=== PATIENT | male | born 2000 | race Two or more races ===

== ENCOUNTER 2019-06-02 17:59 | Emergency (ER) | payer BC, OTHER ==
[~2019-06-02] VITALS: Ht 177.8 cm; Wt 70.3 kg
[2019-06-02] MEDS ORDERED: IBUPROFEN 800 MG TAB PO ONE (20:15)
[2019-06-02 20:31] VITALS: BP 145/90
== END 2019-06-02 21:22 | disposition home or self-care (01) ==
LOC: ER 18:00
DX: S43.102A Unspecified dislocation of left acromioclavicular joint, initial encounter (principal); W19.XXXA Unspecified fall, initial encounter; Y93.89 Activity, other specified; Y99.8 Other external cause status; Y92.89 Other specified places as the place of occurrence of the external cause
CPT/HCPCS: 73030